=== PATIENT | female | born 2000 | race Caucasian/White ===

== ENCOUNTER 2018-07-11 10:30 | Emergency (ER) | payer MEDICAID ==
[2018-07-11] MEDS ORDERED: OXYMETAZOLINE 30 ML NASAL SPRAY EACHNARE ONE (11:15)
--- NOTE | 2018-07-11 11:19 | EDPHY ---
General - History Smoking Status: Never smoked Time Seen by Provider: 07/11/18 10:54 Narrative: CLINICAL IMPRESSION: Vocal Cord Dysfunction ASSESSMENT/PLAN: 17 yo female presents to the ER with 1 week of intermittent hoarseness and a feeling of "tremors" in her vocal cords. No recent URI symptoms, fever, cough, or vocal cord abuse. No history of vocal cord polyps. No chest pain, shortness of breath, headache, dizziness or lightheadedness. No palpable neck masses or thyroid mass/nodule. Fiberoptic laryngoscopy reveals no evidence of vocal cord paralysis, vocal cord polyp or nodule. Base of tongue clear, no evidence of epiglottitis, arytenoids clear. I suspect patient is struggling from intermittent vocal cord dysfunction. I have referred her to ENT and speech therapy. Reassurance provided. Warning signs return to ED sooner outlined in discharge. DIFFERENTIAL DX: Differential diagnosis includes but not limited to viral laryngitis, vocal cord dysfunction, vocal cord paralysis, anxiety, viral infection ED PROCEDURES: See lab and/or imaging results below ED Fiberoptic laryngoscopy Verbal consent obtained from the patient after risks and benefits were discussed. Decongestant applied to both nares through Afrin nose spray. Fiberoptic laryngoscope was passed easily through the left nares between the middle and inferior turbinate. Nasopharyngeal mass appreciated. Upper airway intact. Vocal cords visualized. No evidence of vocal cord paralysis, vocal cord polyps, vocal cord nodule. There does appear to be mild vocal cord dysfunction. No evidence of epiglottitis. Arytenoids clear. Base of tongue without abnormality or mass. Patient tolerated procedure well. ED COURSE: Plan for this patient, Afrin to both nares, fiberoptic laryngoscopy CHIEF COMPLAINT: Troubles with my voice HPI: 17-year-old otherwise healthy female presents to the emergency department with 1 week of what she describes as "tremors in my voice and trouble getting words out occasionally". Patient reports her voice will occasionally sound hoarse and she will be mid sentence when words will not come out. She denies any vocal cord trauma, yelling, singing, or forceful throat clearing. No palpable neck mass or history of thyroid mass. No sore throat, strep tonsillitis, recent infection, fever or chills. No palpable lymph nodes to the neck, axilla or groin. No chest pain or shortness of breath. No headaches. She has never had these symptoms before. No history of anxiety or panic. Patient's father is with her and reports she has had some extra stress at school and a boyfriend has moved away for study abroad program. She has not tried anything for her symptoms. PAST MEDICAL HISTORY: None reported See triage summary and nurse notes for addition applicable history Pertinent Past Surgical History: None reported Family History: Otherwise healthy Social History: Nonsmoker, student, otherwise healthy REVIEW OF SYSTEMS: A full 10 point review of systems was negative except for those mentioned in HPI. PHYSICAL EXAM: General Appearance: Alert, oriented, appropriate, cooperative, NAD, well hydrated, non-toxic appearing, VSS, no hypoxia. HEENT: TMs are clear bilaterally no perforation or FB, no injection, no evidence of serous or mucopurulent otitis. Mild hoarseness noted, Oropharynx clear is no erythema or exudates, no tonsillar hypertrophy or asymmetry. Dentition without abnormality. Neck: Supple, nontender, no lymphadenopathy, no thyroid mass palpated, no supraclavicular lymphadenopathy no midline pain, FROM, no meningismus. Respiratory: There are no retractions, lungs are clear to auscultation. Cardiac: Regular rate and rhythm, no murmurs or gallops. MEDICAL DECISION MAKING: Patient was seen independently. Secondary supervising physician at time of evaluation was: Dr. Craft. Diagnosis: Vocal cord dysfunction. New, requires workup Summary: See Assessment and Plan for summary of ED visit Independent visualization of images, tracing, or specimens: Yes. Patient Progress: Improved. (Andrew Guillaume) Medical Decision Making: PHYSICIAN DOCUMENTATION: The patient was evaluated and managed by the Physician [employer]. My co- signature indicates that I have reviewed this chart and I agree with the findings and plan of care as documented. I am the secondary supervising physician. (Hernesto Craft) - Objective Vital Signs: Initial Vital Signs Temperature (C) 37.0 C 07/11/18 10:43 Heart Rate 126 H 07/11/18 10:43 Respiratory Rate 18 07/11/18 10:43 Blood Pressure 137/92 H 07/11/18 10:43 O2 Sat (%) 99 07/11/18 10:43 O2 Delivery Mode Room Air Allergies/Adverse Reactions: Penicillins Allergy (Verified 07/11/18 10:43) Home Medications: Medication Instructions Recorded NK [No Known Home Meds] 07/11/18 Medications Given: Discontinued Medications Oxymetazoline HCl (Afrin Nasal [place]) 2 sprays EACHNARE EDNOW ONE Stop: 07/11/18 11:16 Last Admin: 07/11/18 11:30 Dose: 2 sprays Departure - Departure Disposition: Home, Routine, Self-Care Clinical Impression: Vocal cord dysfunction Condition: Good Instructions: Direct Laryngoscopy (DC) Additional Instructions: DISCHARGE INSTRUCTIONS FROM YOUR DOCTOR Thank you for visiting our emergency department today. Please keep in mind that discharge from the emergency department does not mean that there is nothing wrong - it simply means that we have not identified an emergency condition that requires further evaluation or treatment in the hospital. You should always plan to follow up with primary care for re-evaluation of your condition in the next 2-3 days. If you have been referred to a specialist, please call as soon as possible (today or tomorrow) to schedule your follow up appointment at the appropriate time. I SUSPECT YOU HAVE VOCAL CORD DYSFUNCTION. A DIRECT FIBEROPTIC LARYNGOSCOPY WAS PERFORMED IN THE EMERGENCY DEPARTMENT. I DID NOT APPRECIATE VOCAL CORD NODULE, POLYP, MASS, OR PARALYSIS. PLEASE DO NOT BE AGGRESSIVE WITH HER VOICE, AVOID THINGS LIKE SCREAMING, YELLING, SINGING LOUDLY OR CLEARING HER VOICE FORCEFULLY. AND EAR NOSE AND THROAT REFERRAL WAS GIVEN. TYPICALLY THIS RESOLVES WITH SPEECH THERAPY. RETURN TO THE EMERGENCY DEPARTMENT FOR WORSENING HOARSENESS, INABILITY TO SWALLOW HER OWN SALIVA, SHORTNESS OF BREATH, FEVERS, NECK SWELLING, CHEST PAIN OR ANY OTHER CONCERNS. People present with illnesses and injuries in different ways, and it is always possible that we have missed something. You may always return for re-evaluation if symptoms worsen or if they are not improving or if you develop new/different symptoms. Again, thank you for choosing our emergency department. We hope that you feel better. Referrals: NONE *PRIMARY CARE P,. [Primary Care Provider] - As per Instructions Lucia Aguayo MD [Medical Doctor] - As per Instructions
[2018-07-11 12:15] VITALS: BP 122/91
== END 2018-07-11 12:15 | disposition home or self-care (01) ==
PROC: 0CJS8ZZ Inspection of Larynx, Via Natural or Artificial Opening Endoscopic (ICD-10-PCS; principal; 2018-07-11)
DX: R49.0 Dysphonia (principal); J38.3 Other diseases of vocal cords